=== PATIENT | female | born 1970 | race Caucasian/White ===

== ENCOUNTER 2019-09-03 17:03 | Emergency (ER) | payer OTHER, MEDICARE, MEDICAID ==
[~2019-09-03] VITALS: Ht 167.6 cm; Wt 73.7 kg
[~2019-09-03 17:03] MED LIST: ASA400T PO; AZIL1TAB3 PO; CLON-527 PO; DICY20TA33 PO; HYDR-4353 PO; ONDA4TAB6 PO
[2019-09-03 17:37] VITALS: BP 134/80
[2019-09-03] MEDS ORDERED: DOXY100C43 PO (19:42)
== END 2019-09-03 20:36 | disposition home or self-care (01) ==
LOC: ER 17:04
DX: S90.821A Blister (nonthermal), right foot, initial encounter (principal); L03.115 Cellulitis of right lower limb; I10 Essential (primary) hypertension; G89.29 Other chronic pain; F41.9 Anxiety disorder, unspecified; F17.200 Nicotine dependence, unspecified, uncomplicated; Z88.0 Allergy status to penicillin; Z88.8 Allergy status to other drugs, medicaments and biological substances; Z79.899 Other long term (current) drug therapy; X58.XXXA Exposure to other specified factors, initial encounter; Y93.89 Activity, other specified; Y92.89 Other specified places as the place of occurrence of the external cause; Y99.8 Other external cause status
CPT/HCPCS: 29515; 73610; 87070; 87077; 87186; 99284

== ENCOUNTER 2019-11-27 21:45 | Emergency (ER) | payer OTHER, MEDICARE, MEDICAID ==
[~2019-11-27] VITALS: Ht 170.2 cm; Wt 75.0 kg
[2019-11-27] MEDS ORDERED: ketorolac trometh. 30mg/ml inj. IV ONE (22:35)
[2019-11-27 22:56] LABS: BASOPHILS # (AUTO) 0.1 X10'3 (0-0.2); BASOPHILS % (AUTO) 0.8 % (0-1); EOSINOPHILS # (AUTO) 0.2 X10'3 (0-0.9); EOSINOPHILS % (AUTO) 2.7 % (0-6); HEMATOCRIT 38.2 % (35.0-45.0); HEMOGLOBIN 12.7 g/dl (12.0-16.0); LYMPHOCYTES # (AUTO) 2.2 X10'3 (1.1-4.8); LYMPHOCYTES % (AUTO) 35.9 % (21-51); MEAN CORPUSCULAR HEMOGLOBIN 29.8 PG (27.0-31.0); MEAN CORPUSCULAR HGB CONC 33.1 g/dL (33.0-36.5); MEAN PLATELET VOLUME 7.2 FL (7.4-10.4); MONOCYTES # (AUTO) 0.3 X10'3 (0-0.9); MONOCYTES % (AUTO) 5.2 % (2-12); NEUTROPHILS # (AUTO) 3.4 X10'3 (1.8-7.7); NEUTROPHILS % (AUTO) 55.4 % (42-75); PLATELET COUNT 300 X10'3 (140-440); RED BLOOD COUNT 4.24 X10'6 (4.20-5.60); RED CELL DISTRIBUTION WIDTH 14.9 % (11.5-14.5); WHITE BLOOD COUNT 6.2 X10'3 (4.5-11.0)
[2019-11-27 23:04] LABS: ALBUMIN 3.7 G/DL (3.4-5.0); ANION GAP 11 (8-16); BLOOD UREA NITROGEN 9 MG/DL (7-18); BUN/CREATININE RATIO 12.7 (6.6-38.0); CALCIUM 8.6 MG/DL (8.5-10.1); CHLORIDE 108 MMOL/L (99-107); CREATININE 0.71 MG/DL (0.40-0.90); GLUCOSE 109 MG/DL (70-104); POTASSIUM 3.2 MMOL/L (3.5-5.1); SODIUM 144 MMOL/L (135-145); TOTAL CARBON DIOXIDE 25.1 MMOL/L (24-32); eGFR 87 ML/MIN
[2019-11-27] MEDS ORDERED: ketorolac trometh. 30mg/ml inj. IM ONE (23:15)
[2019-11-27 23:56] VITALS: BP 136/87
== END 2019-11-27 23:57 | disposition home or self-care (01) ==
LOC: ER 21:46
DX: L97.319 Non-pressure chronic ulcer of right ankle with unspecified severity (principal); G89.29 Other chronic pain; I10 Essential (primary) hypertension; F17.200 Nicotine dependence, unspecified, uncomplicated; F12.90 Cannabis use, unspecified, uncomplicated; F41.9 Anxiety disorder, unspecified; Z86.14 Personal history of Methicillin resistant Staphylococcus aureus infection; Z98.890 Other specified postprocedural states; Z88.0 Allergy status to penicillin; Z88.8 Allergy status to other drugs, medicaments and biological substances; Z79.899 Other long term (current) drug therapy
CPT/HCPCS: 36415; 73610; 80048; 83605; 85025; 96372; 99284; J1885